=== PATIENT | male | born 1980 | race Caucasian/White ===

== ENCOUNTER 2017-05-26 20:40 | Emergency (ER) | payer OTHER ==
[~2017-05-26] VITALS: Ht 182.8 cm; Wt 81.6 kg
[~2017-05-26 20:40] MED LIST: ADDERALL 10 MG10 MG PO; BACTRIM DS 8001 TA1 PO; CLEOCIN150 MG PO; CLINDAMYCIN; VICODIN 5/500 505 MG PO; XANAX2 MG PO
== END 2017-05-26 22:25 | disposition left against medical advice (07) ==
LOC: ED 20:40
DX: T40.1X1A Poisoning by heroin, accidental (unintentional), initial encounter (principal); Y92.9 Unspecified place or not applicable

== ENCOUNTER 2017-06-14 11:24 | Emergency (ER) | payer OTHER ==
[~2017-06-14] VITALS: Wt 74.8 kg
[2017-06-14 12:12] LABS: HEMATOCRIT 47.3 % (42.0-52.0); HEMOGLOBIN 16.3 g/dl (14.0-18.0); MEAN CELL VOLUME 89.6 fl (80.0-94.0); MEAN CORPUSCULAR HGB 30.9 pg (27.0-31.0); MEAN CORPUSCULAR HGB CONC 34.5 g/dl (33.0-37.0); MEAN PLATELET VOLUME 9.6 fl (9.6-12.3); PLATELET COUNT AUTOMATED 308 10*3/uL (130-400); RED BLOOD COUNT 5.28 10*6/uL (4.50-5.90); RED CELL DISTRI WIDTH 12.7 % (0-14.5); WHITE BLOOD COUNT 19.1 10*3/uL (4.8-10.8)
[2017-06-14 12:26] LABS: ALBUMIN 4.2 gm/dl (3.1-4.5); ALKALINE PHOSPHATASE 123 U/L (45-117); BILIRUBIN, TOTAL 0.4 mg/dl (0.2-1.0); BUN 11 mg/dl (7-24); CARBON DIOXIDE 25 mmol/L (21-32); CHLORIDE 102 mmol/L (98-107); EST GLOM FILT AFRICAN AMERICAN > 60 ml/min; GLUCOSE 169 mg/dL (65-99); POTASSIUM 4.3 mmol/L (3.5-5.1); SGOT/AST 114 IU/L (3-35); SGPT/ALT 115 U/L (12-78); SODIUM 133 mmol/L (136-145); TOTAL PROTEIN 7.7 gm/dL (6.4-8.2)
[2017-06-14 12:28] LABS: TROPONIN I < 0.015 ng/ml (<0.045)
[2017-06-14 12:41] LABS: LYMPHOCYTE # 0.2 10*3/uL (1.3-4.4); MONOCYTE # 0.2 10*3/uL (0.1-1.0); NEUTROPHIL # 18.7 10*3/uL (2.3-7.9); NEUTROPHILS 98 % (47-73); PLATELET SUFFICIENCY NORMAL (NORMAL); TOTAL CELLS COUNTED 100 #CELLS
== END 2017-06-14 12:58 | disposition left against medical advice (07) ==
LOC: ED 11:24
PROVIDERS: Student in an Organized Health Care Education/Training Program
DX: T40.1X4A Poisoning by heroin, undetermined, initial encounter (principal); R00.0 Tachycardia, unspecified; H57.02 Anisocoria; R94.31 Abnormal electrocardiogram [ECG] [EKG]; V89.2XXA Person injured in unspecified motor-vehicle accident, traffic, initial encounter; Y93.89 Activity, other specified; Y92.413 State road as the place of occurrence of the external cause; Y99.9 Unspecified external cause status

== ENCOUNTER → 2024-12-16 | Outpatient (CLI) | payer OTHER | END | disposition home or self-care (01) | LOC: US 02:20 | PROVIDERS: ATTEND Internal Medicine | DX: K76.0 Fatty (change of) liver, not elsewhere classified (principal); B19.20 Unspecified viral hepatitis C without hepatic coma ==